=== PATIENT | male | born 1955 | race Hispanic/Latino ===

== ENCOUNTER → 2018-03-25 | Day surgery (SDC) | payer BC ==
[~2018-03-25] MED LIST: ATORVASTATIN CA20 MG PO; BALANCED SALT SOLN (OPTH) 15 ML BTL IO ONE; FENTANYL CITRATE/PF 100MCG/2 ML INJ ONE; LIDOCAINE 2% /EPINEPHRINE 20 ML SDV INJ ONE; LIDOCAINE 2%/ EPINEPHRINE 20ML MDV ONE; MIDAZOLAM HCL 2 MG/2 ML VIAL ONE; NEOMYCIN/POLYMYXIN/DEX (OPTH) 3.5 GM TUBE ONE; OR PHACO EYE KIT ONE; POVIDONE IODINE 5% (OPTH) 30 ML BTL ONE; PREOP PHACO EYE KIT ONE
[2018-03-25 17:00] VITALS: BP 127/90
--- NOTE | 2018-03-26 12:31 | Operative Report ---
DATE OF PROCEDURE: March 25, 2018 PREOPERATIVE DIAGNOSIS: Very large pterygium right eye. POSTOPERATIVE DIAGNOSIS: Very large pterygium right eye. OPERATIONS PERFORMED 1. Pterygium excision right eye nasal. 2. Amniotic membrane graft placement in the right eye nasal. 3. Superficial keratectomy right eye nasal. 4. Mitomycin-C 0.25 mg per mL 60 seconds right eye. ANESTHESIA: MAC. COMPLICATIONS: None. AMNIOTIC MEMBRANE GRAFT: Serial number is [id number]. PROCEDURE: The patient was taken to the operating room where he had tetracaine drops placed in the eye. The right eye was prepped and draped in the usual sterile opthalmic way. A lid speculum was placed in the right eye. A 6-0 sterile stay suture was placed at the limbus, and the pterygium was localized. Lidocaine 2%, 0.25 mL with epinephrine was injected. The pterygium was localized and sized and very carefully removed away from the sclera and cornea using 0.12 forceps and Sanaz scissors. Once it was removed, it was sent to pathology. A bur was used to perform a superficial keratectomy to remove the residual debris from the cornea. Wet-Field cautery was used to control any bleeding. A cottonoid was soaked in mitomycin-C 0.25 mg per mL. It was placed on the edge of the conjunctiva for 60 seconds. Copious amounts of BSS solution were used to irrigate this off once it was removed. The graft measured 10 x 20 mm. It was secured using fibrin and thrombin glue. Excess glue and tissue were removed using 0.12 forceps and Sanaz scissors. Maxitrol ointment, a patch and Sterling shield were placed on the eye. Patient tolerated the procedure well and will be seen in my office. Job#: [id number] EV
== END | disposition home or self-care (01) ==
LOC: OR 12:41
PROVIDERS: ATTEND Ophthalmology
DX: H11.051 Peripheral pterygium, progressive, right eye (principal); N20.0 Calculus of kidney
CPT/HCPCS: 65426; 88304; J2001; J2250; V2790

== ENCOUNTER → 2018-04-08 | Day surgery (SDC) | payer BC ==
[~2018-04-08] MED LIST changes: -LIDOCAINE 2%/ EPINEPHRINE 20ML MDV ONE; -OR PHACO EYE KIT ONE; -PREOP PHACO EYE KIT ONE
[2018-04-08 13:15] VITALS: BP 109/80
--- NOTE | 2018-04-08 19:03 | Operative Report ---
DATE OF PROCEDURE: April 08, 2018 PREOPERATIVE DIAGNOSIS: Very large nasal pterygium left eye. POSTOPERATIVE DIAGNOSIS: Very large nasal pterygium left eye. OPERATIONS PERFORMED 1. Pterygium excision left eye nasal. 2. Amniotic membrane graft placement left eye nasal. 3. Superficial keratectomy left eye nasal. 4. Mitomycin-C 0.25 mg per mL left eye nasal, 60 seconds. ANESTHESIA: MAC. COMPLICATIONS: None. PROCEDURE: The patient was taken to the operating room where he received tetracaine drops placed on the eye. The patient's eye was prepped and draped in the usual sterile opthalmic way. A lid speculum was placed in the left eye, and 6-0 sterile stay sutures were placed at the limbus and the pterygium was localized and marked off with a marking pen. It was incised very carefully and removed away from the sclera and cornea using 0.12 forceps and Sanaz scissors. Prior to this, 0.2 mL of lidocaine 2% with epinephrine was injected to anesthetize the area. Once this pterygium was removed, it was sent to pathology. A bur was used to perform a superficial keratectomy, and Wet-Field cautery was used to control any bleeding. A bur was used to perform a superficial keratectomy and remove the residual debris from the cornea. Mitomycin was soaked in a cottonoid, placed 0.25 mg per mL for 60 seconds at the edge of the conjunctiva. Copious amounts of BSS solution were used once this was removed. The amniotic membrane measured 10 x 15 mm. It was secured using fibrin and thrombin glue. Excess glue and tissue were cut to size using 0.12 forceps and Sanaz scissors. Patient tolerated the procedure well and had a Maxitrol ointment patch and Sterling shield placed on the eye. The amniotic membrane graft serial number was [id number]. Job#: [id number] EV
== END | disposition home or self-care (01) ==
LOC: OR 09:27
PROVIDERS: ATTEND Ophthalmology
DX: H11.052 Peripheral pterygium, progressive, left eye (principal); E78.5 Hyperlipidemia, unspecified
CPT/HCPCS: 65426; 88304; J2001; J2250; V2790

== ENCOUNTER → 2018-04-22 | Day surgery (SDC) | payer BC ==
[~2018-04-22] MED LIST changes: -BALANCED SALT SOLN (OPTH) 15 ML BTL IO ONE; -LIDOCAINE 2% /EPINEPHRINE 20 ML SDV INJ ONE; -NEOMYCIN/POLYMYXIN/DEX (OPTH) 3.5 GM TUBE ONE; +OR PHACO EYE KIT ONE; -POVIDONE IODINE 5% (OPTH) 30 ML BTL ONE; +PREOP PHACO EYE KIT ONE
[2018-04-22 13:00] VITALS: BP 117/80
== END | disposition home or self-care (01) ==
LOC: OR 08:59
PROVIDERS: ATTEND Ophthalmology
DX: H25.11 Age-related nuclear cataract, right eye (principal)
CPT/HCPCS: 66984; J2250; V2632

== ENCOUNTER → 2018-05-13 | Day surgery (SDC) | payer BC ==
[2018-05-13 12:30] VITALS: BP 121/79
== END | disposition home or self-care (01) ==
LOC: OR 09:21
PROVIDERS: ATTEND Ophthalmology
DX: H25.12 Age-related nuclear cataract, left eye (principal)
CPT/HCPCS: 66984; J2250; V2632